=== PATIENT | male | born 1945 | race Caucasian/White ===

== ENCOUNTER 2021-07-01 13:22 | Emergency (ER) | payer MEDICARE ==
[2021-07-01] MEDS: Ketorolac 60 MG/2 ML SDV IM ONE (15:05)
[2021-07-01] MEDS: Ketorolac 30 MG/ML SDV ONE (15:17)
== END 2021-07-01 15:15 | disposition home or self-care (01) ==
LOC: LB.ED 13:22
DX: M10.9 Gout, unspecified (principal); E11.9 Type 2 diabetes mellitus without complications; I25.2 Old myocardial infarction; Z79.899 Other long term (current) drug therapy; Z88.8 Allergy status to other drugs, medicaments and biological substances
CPT/HCPCS: 36415; 80053; 83735; 84443; 84550; 85025; 85651; 96372; 99283; J1885

== ENCOUNTER 2023-06-03 23:35 | Emergency (ER) | payer MEDICARE ==
[2023-06-04] MEDS: rOPINIRole 0.25 MG Tab PO ONE (00:19)
== END 2023-06-04 00:47 | disposition home or self-care (01) ==
LOC: LB.ED 23:35
DX: G25.81 Restless legs syndrome (principal); I25.2 Old myocardial infarction; E11.9 Type 2 diabetes mellitus without complications; Z88.8 Allergy status to other drugs, medicaments and biological substances; Z79.899 Other long term (current) drug therapy; Z79.82 Long term (current) use of aspirin; Z79.4 Long term (current) use of insulin
CPT/HCPCS: 99283; A9270

== ENCOUNTER 2024-07-27 14:18 | Emergency (ER) | payer MEDICARE ==
[2024-07-27] MEDS: Sodium Chloride 0.9% 500 ML IV ONE (15:07)
[2024-07-27 15:11] LABS: BASOPHILS ABSOLUTE AUTO 0.03 K/uL (0.02-0.10); BASOPHILS PERCENT AUTO 0.3 % (0.0-0.5); EOSINOPHILS ABSOLUTE AUTO 0.03 K/uL (0.04-0.40); EOSINOPHILS PERCENT AUTO 0.3 % (1.0-5.0); HEMATOCRIT 34.1 % (40.0-54.0); HEMOGLOBIN 11.9 g/dL (13.0-18.0); LYMPHOCYTES ABSOLUTE AUTO 1.56 K/uL (1.50-4.00); MEAN CORPUSCULAR HEMOGLOBIN 33.3 pg (27.0-32.0); MEAN CORPUSCULAR HGB CONC 34.9 g/dL (31.0-35.0); MEAN CORPUSCULAR VOLUME 96 fL (76-96); MEAN PLATELET VOLUME 11.2 fL (6.0-10.0); MONOCYTES ABSOLUTE AUTO 0.65 K/uL (0.20-0.80); MONOCYTES PERCENT AUTO 5.4 % (3.0-10.0); PLATELET COUNT,PLT 165 K/uL (150-400); RED BLOOD CELL COUNT 3.57 M/uL (4.50-6.50); RED CELL DISTRIBUTION WIDTH 13.5 % (11.0-16.0)
[2024-07-27 15:32] LABS: ANION GAP 9.6 mmol/L (5.0-15.0); BUN/CREATININE RATIO 23.8 (6-25); CALCIUM 8.3 mg/dL (8.5-10.1); CARBON DIOXIDE,CO2 30.2 mmol/L (21.0-32.0); CREATININE 1.3 mg/dL (0.70-1.30); EST CRCL DRUG DOSING (CG) 48.35 mL/min; MAGNESIUM 1.8 mg/dL (1.8-2.4); TROPONIN I HIGH SENSITIVITY 33.7 pg/ml (<=60.4)
[2024-07-27 15:33] LABS: POTASSIUM,K 2.8 mmol/L (3.5-5.1)
[2024-07-27] MEDS: Potassium Chloride 20 MEQ Tab.ER PO ONE (15:43)
[2024-07-27] MEDS: NS with KCl 40mEq 1,000 ML IV SCH (15:43)
[2024-07-27 16:10] LABS: APPEARANCE,URINE CLEAR (CLEAR); BILIRUBIN,URINE NEGATIVE (NEGATIVE); COLOR,URINE YELLOW; GLUCOSE,URINE NEGATIVE (NEGATIVE); KETONES,URINE NEGATIVE (NEGATIVE); LEUKOCYTE ESTERASE,URINE NEGATIVE (NEGATIVE); NITRITE,URINE NEGATIVE (NEGATIVE); OCCULT BLOOD,URINE NEGATIVE (NEGATIVE); PH,URINE 5.5 (5.0-8.0); PROTEIN,URINE NEGATIVE (NEGATIVE); UROBILINOGEN,URINE 0.2 E.U./dL (0.2-1.0)
[2024-07-27 17:10] LABS: ANION GAP 7.4 mmol/L (5.0-15.0); BUN/CREATININE RATIO 23.2 (6-25); CALCIUM 8.2 mg/dL (8.5-10.1); CARBON DIOXIDE,CO2 32.4 mmol/L (21.0-32.0); CREATININE 1.25 mg/dL (0.70-1.30); EST CRCL DRUG DOSING (CG) 50.29 mL/min
[2024-07-27 17:11] LABS: POTASSIUM,K 2.8 mmol/L (3.5-5.1)
== END 2024-07-27 17:26 | disposition home or self-care (01) ==
LOC: LB.ED 14:18
DX: I95.2 Hypotension due to drugs (principal); E87.6 Hypokalemia; E11.9 Type 2 diabetes mellitus without complications; Z88.8 Allergy status to other drugs, medicaments and biological substances; Z79.82 Long term (current) use of aspirin; Z79.4 Long term (current) use of insulin; Z79.899 Other long term (current) drug therapy
CPT/HCPCS: 36415; 80048; 81003; 83735; 84484; 85025; 93005; 96365; 99285-25; A9270-GY; J3480; J7040

== ENCOUNTER 2025-01-14 13:36 | Inpatient (IN) | payer MEDICAID ==
[2025-01-14] MEDS ORDERED: Sodium Chloride 0.9% 10 ML Syringe FLUSH PRN (13:53)
[2025-01-14 13:59] LABS: BASOPHILS ABSOLUTE AUTO 0.01 K/uL (0.02-0.10); BASOPHILS PERCENT AUTO 0.2 % (0.0-0.5); EOSINOPHILS ABSOLUTE AUTO 0.00 K/uL (0.04-0.40); EOSINOPHILS PERCENT AUTO 0.0 % (1.0-5.0); LYMPHOCYTES ABSOLUTE AUTO 0.39 K/uL (1.50-4.00); LYMPHOCYTES PERCENT AUTO 6.2 % (20.0-40.0); MEAN PLATELET VOLUME 10.9 fL (6.0-10.0); MONOCYTES ABSOLUTE AUTO 0.24 K/uL (0.20-0.80); MONOCYTES PERCENT AUTO 3.8 % (3.0-10.0); NEUTROPHILS ABSOLUTE AUTO 5.61 K/uL (2.00-7.50); NEUTROPHILS PERCENT AUTO 89.8 % (45.0-70.0); PLATELET COUNT,PLT 187 K/uL (150-400); RED BLOOD CELL COUNT 4.12 M/uL (4.50-6.50); RED CELL DISTRIBUTION WIDTH 14.4 % (11.0-16.0); WHITE BLOOD CELL COUNT,WBC 6.3 K/uL (4.0-11.0)
[2025-01-14 14:17] LABS: A/G RATIO 1.0 (0.8-2.0); ALANINE AMINOTRANSFERASE,ALT 27.0 U/L (12-78); ASPARTATE AMNIOTRANSFERASE,AST 27.0 U/L (15-37); BILIRUBIN TOTAL 1.0 mg/dL (0.0-1.0); BLOOD UREA NITROGEN,BUN 19.0 mg/dL (8-26); CARBON DIOXIDE,CO2 25.8 mmol/L (21.0-32.0); CHLORIDE,CL 104.0 mmol/L (98-107); CREATININE 1.64 mg/dL (0.70-1.30); EST CRCL DRUG DOSING (CG) 37.71 mL/min; ESTIMATED GFR 42.0 mL/min (>60); GLUCOSE RANDOM 105.0 mg/dL (74-100); POTASSIUM,K 3.6 mmol/L (3.5-5.1); PROTEIN TOTAL,TP 6.2 g/dL (6.4-8.2); SODIUM,NA 137.0 mmol/L (136-145)
[2025-01-14 14:19] LABS: TROPONIN I HIGH SENSITIVITY 173.7 pg/ml (<=60.4)
[2025-01-14] MEDS ORDERED: 50% Dextrose in Water 50 ML Syringe IVPUSH PRN (15:59)
[2025-01-14] MEDS ORDERED: Nitroglycerin 0.4 MG Tab.SL SL PRN (15:59)
[2025-01-14 16:01] LABS: INFLUENZA A NAA NEGATIVE (NEGATIVE); INFLUENZA B NAA NEGATIVE (NEGATIVE); RESPIRATORY SYNCYTIAL VIR NAA NEGATIVE (NEGATIVE)
[2025-01-14 16:03] LABS: CORONAVIRUS COVID-19 NAA NEGATIVE (NEGATIVE)
[2025-01-14] MEDS: Insulin Glargine,Human Rec. Analog 100 Units/ML 3 ML Pen SUBCUT SCH (19:43)
[2025-01-14] MEDS: Potassium Chloride 20 MEQ Tab.ER PO SCH (19:44)
[2025-01-14] MEDS ORDERED: rOPINIRole 3 MG Tab PO SCH (20:00)
[2025-01-14] MEDS: Levofloxacin/Dextrose 5%-Water 750 MG in Levofloxacin/Dextrose 5%-Water 150 ML IV SCH (21:19)
[2025-01-15] MEDS: glipiZIDE 5 MG Tab.ER PO SCH (08:00)
[2025-01-15 08:22] LABS: BASOPHILS ABSOLUTE AUTO 0.01 K/uL (0.02-0.10); BASOPHILS PERCENT AUTO 0.1 % (0.0-0.5); EOSINOPHILS ABSOLUTE AUTO 0.01 K/uL (0.04-0.40); EOSINOPHILS PERCENT AUTO 0.1 % (1.0-5.0); LYMPHOCYTES ABSOLUTE AUTO 1.60 K/uL (1.50-4.00); LYMPHOCYTES PERCENT AUTO 11.8 % (20.0-40.0); MEAN PLATELET VOLUME 10.9 fL (6.0-10.0); MONOCYTES ABSOLUTE AUTO 0.48 K/uL (0.20-0.80); MONOCYTES PERCENT AUTO 3.5 % (3.0-10.0); NEUTROPHILS ABSOLUTE AUTO 11.46 K/uL (2.00-7.50); NEUTROPHILS PERCENT AUTO 84.5 % (45.0-70.0); PLATELET COUNT,PLT 165 K/uL (150-400); RED BLOOD CELL COUNT 3.54 M/uL (4.50-6.50); RED CELL DISTRIBUTION WIDTH 14.5 % (11.0-16.0); WHITE BLOOD CELL COUNT,WBC 13.6 K/uL (4.0-11.0)
[2025-01-15 08:23] LABS: APPEARANCE,URINE CLEAR (CLEAR); GLUCOSE,URINE NEGATIVE (NEGATIVE); OCCULT BLOOD,URINE NEGATIVE (NEGATIVE)
[2025-01-15 08:47] LABS: A/G RATIO 0.8 (0.8-2.0); ALANINE AMINOTRANSFERASE,ALT 18.0 U/L (12-78); ASPARTATE AMNIOTRANSFERASE,AST 23.0 U/L (15-37); BLOOD UREA NITROGEN,BUN 20.0 mg/dL (8-26); CARBON DIOXIDE,CO2 25.0 mmol/L (21.0-32.0); CHLORIDE,CL 110.0 mmol/L (98-107); CREATININE 1.15 mg/dL (0.70-1.30); EST CRCL DRUG DOSING (CG) 53.78 mL/min; ESTIMATED GFR 65.0 mL/min (>60); GLUCOSE RANDOM 91.0 mg/dL (74-100); POTASSIUM,K 3.9 mmol/L (3.5-5.1); PROTEIN TOTAL,TP 5.4 g/dL (6.4-8.2); SODIUM,NA 144.0 mmol/L (136-145)
[2025-01-15 09:25] LABS: BILIRUBIN TOTAL 0.8 mg/dL (0.0-1.0)
[2025-01-15] MEDS: Acetaminophen/HYDROcodone 325-5 MG Tab PO PRN (15:11)
[2025-01-16 07:50] LABS: BASOPHILS ABSOLUTE AUTO 0.03 K/uL (0.02-0.10); BASOPHILS PERCENT AUTO 0.2 % (0.0-0.5); EOSINOPHILS ABSOLUTE AUTO 0.15 K/uL (0.04-0.40); EOSINOPHILS PERCENT AUTO 1.0 % (1.0-5.0); LYMPHOCYTES ABSOLUTE AUTO 1.41 K/uL (1.50-4.00); LYMPHOCYTES PERCENT AUTO 9.8 % (20.0-40.0); MEAN PLATELET VOLUME 10.7 fL (6.0-10.0); MONOCYTES ABSOLUTE AUTO 0.39 K/uL (0.20-0.80); MONOCYTES PERCENT AUTO 2.7 % (3.0-10.0); NEUTROPHILS ABSOLUTE AUTO 12.36 K/uL (2.00-7.50); NEUTROPHILS PERCENT AUTO 86.3 % (45.0-70.0); PLATELET COUNT,PLT 166 K/uL (150-400); RED BLOOD CELL COUNT 3.49 M/uL (4.50-6.50); RED CELL DISTRIBUTION WIDTH 14.6 % (11.0-16.0); WHITE BLOOD CELL COUNT,WBC 14.3 K/uL (4.0-11.0)
[2025-01-16 08:24] LABS: ALANINE AMINOTRANSFERASE,ALT 7.0 U/L (12-78); ASPARTATE AMNIOTRANSFERASE,AST 16.0 U/L (15-37); BILIRUBIN TOTAL 0.8 mg/dL (0.0-1.0); BLOOD UREA NITROGEN,BUN 15.0 mg/dL (8-26); CARBON DIOXIDE,CO2 27.6 mmol/L (21.0-32.0); CHLORIDE,CL 106.0 mmol/L (98-107); CREATININE 0.99 mg/dL (0.70-1.30); EST CRCL DRUG DOSING (CG) 62.47 mL/min; ESTIMATED GFR 77.0 mL/min (>60); GLUCOSE RANDOM 94.0 mg/dL (74-100); POTASSIUM,K 3.2 mmol/L (3.5-5.1); SODIUM,NA 143.0 mmol/L (136-145)
[2025-01-16 09:09] LABS: A/G RATIO 0.6 (0.8-2.0); PROTEIN TOTAL,TP 6.2 g/dL (6.4-8.2)
[2025-01-17] MEDS ORDERED: Sodium Chloride 0.9% 10 ML Syringe FLUSH PRN (08:37)
[2025-01-17 09:21] LABS: MEAN PLATELET VOLUME 10.7 fL (6.0-10.0); PLATELET COUNT,PLT 204.0 K/uL (150-400); RED BLOOD CELL COUNT 3.94 M/uL (4.50-6.50); RED CELL DISTRIBUTION WIDTH 14.5 % (11.0-16.0); WHITE BLOOD CELL COUNT,WBC 8.4 K/uL (4.0-11.0)
[2025-01-17 09:51] LABS: BLOOD UREA NITROGEN,BUN 14.0 mg/dL (8-26); CARBON DIOXIDE,CO2 29.4 mmol/L (21.0-32.0); CHLORIDE,CL 100.0 mmol/L (98-107); CREATININE 1.15 mg/dL (0.70-1.30); EST CRCL DRUG DOSING (CG) 53.78 mL/min; ESTIMATED GFR 65.0 mL/min (>60); GLUCOSE RANDOM 115.0 mg/dL (74-100); POTASSIUM,K 3.9 mmol/L (3.5-5.1); PRO B-TYPE NATRIUR PEPT,BNPPRO 813.0 pg/mL (0-450); SODIUM,NA 138.0 mmol/L (136-145)
[2025-01-18] MEDS: Insulin Glargine,Human Rec. Analog 100 Units/ML 3 ML Pen SUBCUT SCH (19:23)
[2025-01-19] MEDS: Amoxicillin/Clavulanate K 875-125 MG Tab PO SCH (17:37)
== END 2025-01-20 09:56 | disposition home or self-care (01) | DRG 195 ==
LOC: LB.ED 13:36 → LB.MS 15:44 → UNDOADMIN 15:45 → LB.MS 15:45
PROVIDERS: ADMIT Surgery; ATTEND Surgery
DX: J18.9 Pneumonia, unspecified organism (principal); M10.9 Gout, unspecified; I25.10 Atherosclerotic heart disease of native coronary artery without angina pectoris; I10 Essential (primary) hypertension; G25.81 Restless legs syndrome; N40.0 Benign prostatic hyperplasia without lower urinary tract symptoms; R53.81 Other malaise; G20.A1 Parkinson's disease without dyskinesia, without mention of fluctuations; E78.5 Hyperlipidemia, unspecified; E11.9 Type 2 diabetes mellitus without complications; F41.9 Anxiety disorder, unspecified; F32.A Depression, unspecified; Z98.890 Other specified postprocedural states; Z79.899 Other long term (current) drug therapy
CPT/HCPCS: 36415; 70450; 71045; 80048; 80053; 81003; 82947; 83036; 83605; 83735; 83880; 84484; 85025; 85027; 87040; 87205; 87637; 93005; 93010; 94640; 97110-GP; 97116-GP; 97161-GP; 97530-GP; 99223; 99232; 99238; 99285; A9270-GY; J1815-GY; J2543; J7030